=== PATIENT | male | born 1955 | race Caucasian/White ===

== ENCOUNTER 2018-06-14 03:31 | Observation (INO) ==
[2018-06-14] MEDS ORDERED: ONDANSETRON 4 MG/2 ML VIAL IV STA (04:04)
[2018-06-14] MEDS ORDERED: ALUM/MAG/SIMETH/LIDO VISC 1:1 30 ML BOTTLE PO STA (04:04)
[2018-06-14] MEDS ORDERED: ASPIRIN 325 MG TABLET PO STA (04:04)
[2018-06-14] MEDS ORDERED: NITROGLYCERIN 2% OINT 1 INCH/GM PACK TOP STA (04:04)
[2018-06-14] MEDS ORDERED: MORPHINE 4 MG/1 ML VIAL IV STA (04:04)
[2018-06-14] MEDS ORDERED: PANTOPRAZOLE 40 MG VIAL IV STA (04:04)
[2018-06-14 04:13] LABS: Basophils # 0.1 10*3/uL (0.0-0.2); Basophils % 0.4 % (0.0-0.8); Eosinophils # 0.7 10*3/uL (0.0-0.87); Hematocrit 43.1 VOL% (42.0-52.0); Hemoglobin 14.7 GM/DL (14.0-18.0); Immature Granulocytes % 0.7 %; Immature Granulocytes Absolute 0.09 #; Lymphocytes # 1.4 10*3/uL (1.4-4.0); Lymphocytes % 11.7 % (21.2-54.2); Mean Corpuscular HGB Conc 34.1 GM/DL (32-36); Mean Corpuscular Hemoglobin 30 PG (27-34); Mean Corpuscular Volume 86.5 FL (87-102); Mean Platelet Volume 9.4 FL (9.6-12.0); Monocytes # 0.8 10*3/uL (0.11-0.8); Monocytes % 6.3 % (1.7-12.7); Neutrophils # 9.1 10*3/uL (1.4-7.4); Neutrophils % 74.9 % (38.7-73.9); Platelet Count 224 T/CUMM (130-400); Red Blood Count 4.98 MC/CUMM (3.8-5.5); Red Cell Distribution Width 13.4 % (9.3-17.3); White Blood Count 12.1 T/CUMM (4-12)
[2018-06-14 04:19] LABS: PT Patient Result 10.1 SECS
[2018-06-14 04:28] LABS: Albumin 3.7 G/DL (3.4-5.0); Bilirubin,Total 0.4 MG/DL (0.2-1.0); Calcium 8.5 MG/DL (8.5-10.1); Potassium 3.4 MMOL/L (3.5-5.1); Total Protein 7.3 G/DL (6.4-8.3)
[2018-06-14] MEDS ORDERED: POTASSIUM CHLORIDE 20 MEQ TABLET PO STA (04:37)
[2018-06-14] MEDS ORDERED: MAGNESIUM SULF RIDER 2 GM in PREMIX 1 EACH IV STA (04:37)
[2018-06-14 05:15] LABS: Apearance,Urine CLEAR (Clear); Bilirubin,Urine Negative (Negative); Blood, Urine Negative (Negative); Glucose,Urine (UA) 50 mg/dL (Negative); Ketones,Urine Negative (Negative); Nitrite,Urine Negative (Negative); Protein,Urine Negative; RBC,Urine <1 /HPF (0-4); Urine Color Yellow (Yellow); Urine Specific Gravity 1.008 (1.001-1.035); Urine Urobilinogen < 2.0 EU/DL (0.2-1.0); WBC,Urine <1 /HPF (0-6)
[2018-06-14] MEDS ORDERED: ACETAMINOPHEN 325 MG TABLET PO PRN (07:06)
[2018-06-14] MEDS ORDERED: GLUCAGON 1 MG VIAL IM PRN (07:06)
[2018-06-14] MEDS ORDERED: ONDANSETRON 4 MG/2 ML VIAL IV PRN (07:06)
[2018-06-14] MEDS ORDERED: MORPHINE 4 MG/1 ML VIAL IV PRN (07:06)
[2018-06-14] MEDS ORDERED: DEXTROSE 50% 25 GM/50 ML VIAL IV PRN (07:06)
[2018-06-14] MEDS: INSULIN REGULAR 100 UNIT/ML SUBCUT SCH ×3 (08:00→18:32)
[2018-06-14] MEDS: ENOXAPARIN 40 MG/0.4 ML SYRINGE SUBCUT SCH (08:00)
[2018-06-14] MEDS: SODIUM CHLORIDE 0.9% 1,000 ML IV SCH (08:00)
[2018-06-14] MEDS: PANTOPRAZOLE 40 MG VIAL IV SCH (09:39)
[2018-06-14] MEDS: DOCUSATE SODIUM 100 MG CAPSULE PO SCH ×2 (10:14→20:15)
[2018-06-14] MEDS ORDERED: ALBUTEROL 2.5 MG/3 ML NEB RESP TX PRN (14:04)
[2018-06-14] MEDS ORDERED: traMADol 50 MG TABLET PO PRN (14:04)
[2018-06-14] MEDS: PRAVASTATIN 40 MG TABLET PO SCH (20:15)
[2018-06-14] MEDS: SERTRALINE 100 MG TABLET PO SCH (20:15)
[2018-06-14] MEDS: PREGABALIN 100 MG CAPSULE PO SCH (20:15)
[2018-06-14] MEDS ORDERED: cloNIDine 0.1 MG TABLET PO SCH (21:00)
[2018-06-15] MEDS: SODIUM CHLORIDE 0.9% 1,000 ML IV SCH ×2 (00:25→13:54)
[2018-06-15] MEDS: INSULIN REGULAR 100 UNIT/ML SUBCUT SCH ×3 (00:27→12:28)
[2018-06-15 05:57] LABS: Basophils % 0.5 % (0.0-0.8); Eosinophils # 0.8 10*3/uL (0.0-0.87); Eosinophils % 10.6 % (0.00-10.9); Hematocrit 41.8 VOL% (42.0-52.0); Hemoglobin 14.3 GM/DL (14.0-18.0); Immature Granulocytes % 0.5 %; Immature Granulocytes Absolute 0.04 #; Lymphocytes # 1.2 10*3/uL (1.4-4.0); Lymphocytes % 15.4 % (21.2-54.2); Mean Corpuscular HGB Conc 34.2 GM/DL (32-36); Mean Corpuscular Hemoglobin 30 PG (27-34); Mean Corpuscular Volume 86.5 FL (87-102); Mean Platelet Volume 9.8 FL (9.6-12.0); Monocytes # 0.6 10*3/uL (0.11-0.8); Monocytes % 7.9 % (1.7-12.7); Neutrophils # 5.1 10*3/uL (1.4-7.4); Neutrophils % 65.1 % (38.7-73.9); Platelet Count 184 T/CUMM (130-400); Red Blood Count 4.83 MC/CUMM (3.8-5.5); Red Cell Distribution Width 13.6 % (9.3-17.3); White Blood Count 7.8 T/CUMM (4-12)
[2018-06-15 06:24] LABS: Albumin 3.1 G/DL (3.4-5.0); Bilirubin,Total 0.7 MG/DL (0.2-1.0); Calcium 8.1 MG/DL (8.5-10.1); Osmolality,Calculated 280.3 MOS/KG (273-304); Potassium 3.8 MMOL/L (3.5-5.1); Total Protein 6.3 G/DL (6.4-8.3)
[2018-06-15 06:25] LABS: Risk Ratio 4.52
[2018-06-15] MEDS: ENOXAPARIN 40 MG/0.4 ML SYRINGE SUBCUT SCH (06:30)
[2018-06-15 06:39] LABS: Eosinophils 10 % (0-10); Hypochromasia 1+; Lymphocytes 17 % (20-55); Platelet Estimate Adequate; Segmented Neutrophils 67 % (50-85); Total Cells Counted 100
[2018-06-15] MEDS: SERTRALINE 100 MG TABLET PO SCH (08:25)
[2018-06-15] MEDS: DOCUSATE SODIUM 100 MG CAPSULE PO SCH (08:26)
[2018-06-15] MEDS: PRAVASTATIN 40 MG TABLET PO SCH (08:26)
[2018-06-15] MEDS: PANTOPRAZOLE 40 MG VIAL IV SCH (08:27)
[2018-06-15] MEDS: PREGABALIN 100 MG CAPSULE PO SCH (08:27)
[2018-06-15] MEDS ORDERED: hydroCHLOROthiazide 25 MG TABLET PO SCH (09:00)
[2018-06-15] MEDS ORDERED: DILTIAZEM CD 180 MG CAPSULE PO SCH (09:00)
[2018-06-15] MEDS ORDERED: ARIPiprazole 5 MG TABLET PO SCH (09:00)
[2018-06-15] MEDS ORDERED: MONTELUKAST 10 MG TABLET PO SCH (09:00)
[2018-06-15] MEDS ORDERED: METHOCARBAMOL 750 MG TABLET PO PRN (13:06)
[2018-06-15 13:09] VITALS: BP 116/74
[2018-06-15] MEDS ORDERED: glyBURIDE/METFORMIN 5-500 MG TABLET PO SCH (21:00)
[2018-06-15] MEDS ORDERED: PANTOPRAZOLE 40 MG TABLET PO SCH (21:00)
== END 2018-06-15 13:57 | disposition home or self-care (01) ==
LOC: N.ED 03:31 → INTOOBSV 04:55 → N.EDINP 04:55 → N.TELEN 13:55
PROVIDERS: ADMIT Family Medicine; ATTEND Family Medicine

== ENCOUNTER 2022-01-29 20:48 | Inpatient (IN) ==
[2022-01-29] MEDS ORDERED: ONDANSETRON 4 MG/2 ML VIAL IV STA (21:15)
[2022-01-29] MEDS ORDERED: HYDROmorphone 1 MG/1 ML SYRINGE IV STA (21:15)
[2022-01-29 21:35] LABS: Basophils % 0.3 % (0.0-0.8); Eosinophils % 0.1 % (0.00-10.9); Hematocrit 52.4 VOL% (42.0-52.0); Hemoglobin 17.8 GM/DL (14.0-18.0); Immature Granulocytes Absolute 0.07 #; Lymphocytes # 0.1 10*3/uL (1.4-4.0); Lymphocytes % 1.9 % (21.2-54.2); Mean Corpuscular Volume 84.5 FL (87-102); Mean Platelet Volume 9.6 FL (9.6-12.0); Monocytes % 0.4 % (1.7-12.7); Neutrophils % 96.3 % (38.7-73.9); Platelet Count 186 T/CUMM (130-400); Red Cell Distribution Width 14.2 % (9.3-17.3); White Blood Count 6.7 T/CUMM (4-12)
[2022-01-29 21:44] LABS: INR 1.1; PT Patient Result 12.4 SECS (10.5-12.0); Partial Thromboplastin Time 22.2 SECS (23.8-32.1)
[2022-01-29] MEDS ORDERED: ALBUTEROL 2.5 MG/3 ML NEB RESP TX STA (21:50)
[2022-01-29 21:53] LABS: Bilirubin,Total 0.7 MG/DL (0.20-1.00); Calcium 8.4 MG/DL (8.5-10.1); Osmolality,Calculated 282.8 MOS/KG (273-304); Potassium 3.4 MMOL/L (3.5-5.1); Total Protein 6.5 G/DL (6.4-8.2)
[2022-01-29 21:55] LABS: Lymphocytes 4 % (20-55); Total Cells Counted 100
[2022-01-29 21:56] LABS: Platelet Estimate Normal
[2022-01-29] MEDS ORDERED: FAMOTIDINE 20 MG/2 ML VIAL IV STA (22:11)
[2022-01-29] MEDS ORDERED: diphenhydrAMINE 50 MG/1 ML VIAL IV STA (22:11)
[2022-01-29] MEDS ORDERED: methylPREDNISolone SOD SUC 125 MG/2 ML VIAL IV STA (22:11)
[2022-01-29] MEDS ORDERED: SODIUM CHLORIDE 0.9% 2,000 ML IV STA (23:05)
[2022-01-29] MEDS ORDERED: HEPARIN 5,000 UNIT/1 ML VIAL IV ONE ×2 (23:30→23:40)
[2022-01-29] MEDS ORDERED: ALBUTEROL 2.5 MG/3 ML NEB RESP TX PRN (23:55)
[2022-01-29] MEDS ORDERED: GLUCAGON 1 MG VIAL IM PRN (23:56)
[2022-01-29] MEDS ORDERED: ONDANSETRON 4 MG/2 ML VIAL IV PRN (23:56)
[2022-01-30] MEDS ORDERED: HEPARIN DRIP 25,000 UNITS/500 ML PREMIX IV SCH
[2022-01-30] MEDS ORDERED: POTASSIUM CHLORIDE 20 MEQ TABLET PO PRN ×2 (00:01→00:27)
[2022-01-30] MEDS ORDERED: fentaNYL 100 MCG/2 ML VIAL IV STA (00:04)
[2022-01-30] MEDS ORDERED: DEXTROSE 10% 250 ML BAG IV PRN (00:05)
[2022-01-30] MEDS ORDERED: MAGNESIUM SULF RIDER 4 GM/100 ML PREMIX IV ONE (00:30)
[2022-01-30 04:36] LABS: Arterial Base Excess iSTAT -5 MMOL/L (-2.5-2.5); Arterial Bicarbonate iSTAT 20.5 MMOL/L (20-26); Arterial O2 Saturation iSTAT 97 % (95-100); Arterial PCO2 iSTAT 39 MM HG (35-48); Arterial PO2 iSTAT 101 MM HG (80-95); Arterial Total CO2 iSTAT 22 MMO/L (23-27); Arterial pH iSTAT 7.331 (7.35-7.45)
[2022-01-30] MEDS ORDERED: methylPREDNISolone SOD SUC 40 MG/1 ML VIAL IV SCH (06:00)
[2022-01-30] MEDS ORDERED: DEXTROSE 50% 25 GM/50 ML VIAL IV PRN (07:09)
[2022-01-30] MEDS ORDERED: GLUCAGON 1 MG VIAL IM PRN (07:09)
[2022-01-30 08:25] LABS: Calcium 8.6 MG/DL (8.5-10.1); Potassium 4.6 MMOL/L (3.5-5.1)
[2022-01-30] MEDS: INSULIN LISPRO 100 UNIT/ML SUBCUT SCH ×5 (08:30→22:59)
[2022-01-30] MEDS: PREGABALIN 100 MG CAPSULE PO SCH ×2 (08:31→21:29)
[2022-01-30] MEDS: ARIPiprazole 5 MG TABLET PO SCH (08:31)
[2022-01-30] MEDS: MONTELUKAST 10 MG TABLET PO SCH (08:31)
[2022-01-30] MEDS: SERTRALINE 100 MG TABLET PO SCH ×2 (08:31→21:30)
[2022-01-30] MEDS: DILTIAZEM CD 180 MG CAPSULE PO SCH (08:32)
[2022-01-30] MEDS ORDERED: KETOROLAC 10 MG TABLET PO ONE (08:45)
[2022-01-30] MEDS ORDERED: APIXABAN 5 MG TABLET PO SCH (09:00)
[2022-01-30] MEDS ORDERED: LACTATED RINGERS 1,000 ML IV ONE ×2 (11:43→15:13)
[2022-01-30 12:13] LABS: Basophils % 0.1 % (0.0-0.8); Eosinophils % 0.1 % (0.00-10.9); Immature Granulocytes Absolute 0.17 #; Lymphocytes # 0.6 10*3/uL (1.4-4.0); Lymphocytes % 3.2 % (21.2-54.2); Mean Corpuscular HGB Conc 32.4 GM/DL (32-36); Mean Corpuscular Volume 87.8 FL (87-102); Mean Platelet Volume 10.3 FL (9.6-12.0); Monocytes # 0.4 10*3/uL (0.11-0.8); Neutrophils % 93.6 % (38.7-73.9); Platelet Count 212 T/CUMM (130-400); Red Cell Distribution Width 14.4 % (9.3-17.3)
[2022-01-30 12:14] LABS: Hemoglobin 12.3 GM/DL (14.0-18.0); Red Blood Count 4.33 MC/CUMM (3.8-5.5); White Blood Count 17.6 T/CUMM (4-12)
[2022-01-30 12:21] LABS: Anisocytosis 1+; Band Neutrophils 13 % (0-10); Lymphocytes 7 % (20-55); Macrocytosis Slight; Platelet Estimate Normal; Total Cells Counted 100
[2022-01-30 12:22] LABS: Burr Cells Few
[2022-01-30 12:30] LABS: Albumin 2.4 G/DL (3.4-5.0); Bilirubin,Total 0.4 MG/DL (0.20-1.00); Calcium 8.5 MG/DL (8.5-10.1); Osmolality,Calculated 286.4 MOS/KG (273-304); Potassium 4.6 MMOL/L (3.5-5.1); Total Protein 6.6 G/DL (6.4-8.2)
[2022-01-30] MEDS: PIPERACILLIN/TAZOBACTAM 3,375 MG in SODIUM CHLORIDE 0.9% 100 ML IV SCH ×2 (13:08→21:30)
[2022-01-30] MEDS: LACTATED RINGERS 1,000 ML IV SCH ×2 (13:09→21:28)
[2022-01-30] MEDS: INSULIN GLARGINE 100 UNIT/ML SUBCUT SCH (14:06)
[2022-01-30 16:20] LABS: RBC,Urine 6 /HPF (0-4)
[2022-01-30 16:23] LABS: Bilirubin,Urine Negative (Negative); Glucose,Urine (UA) 500 mg/dL (Negative); Ketones,Urine Negative (Negative); Nitrite,Urine Negative (Negative); Protein,Urine 30 mg/dL (Negative); Urine Appearance Clear (Clear); Urine Color Yellow (Yellow); Urine Specific Gravity 1.025 (1.001-1.035); Urine pH 6.5 (4.5-8.0)
[2022-01-30 16:24] LABS: Blood, Urine Trace mg/dL (Negative)
[2022-01-30] MEDS ORDERED: ALBUTEROL/IPRATROPIUM 3 ML NEB RESP TX PRN (16:31)
[2022-01-30] MEDS: HEPARIN DRIP 25,000 UNITS/500 ML PREMIX IV SCH (16:48)
[2022-01-30 17:15] LABS: INR 1.1
[2022-01-30] MEDS: ALBUTEROL/IPRATROPIUM 3 ML NEB RESP TX SCH ×2 (19:30→23:15)
[2022-01-30] MEDS ORDERED: cloNIDine 0.1 MG TABLET PO SCH (21:00)
[2022-01-30] MEDS: methylPREDNISolone SOD SUC 40 MG/1 ML VIAL IV SCH (21:29)
[2022-01-30] MEDS: SIMVASTATIN 40 MG TABLET PO SCH (21:30)
[2022-01-31] MEDS: INSULIN LISPRO 100 UNIT/ML SUBCUT SCH ×6 (02:02→23:36)
[2022-01-31] MEDS: ALBUTEROL/IPRATROPIUM 3 ML NEB RESP TX SCH ×6 (03:55→23:38)
[2022-01-31] MEDS: LACTATED RINGERS 1,000 ML IV SCH ×5 (04:00→20:12)
[2022-01-31 04:11] LABS: ABG HCO3 24.4 MMOL/L (20-26); ABG Oxygen Saturation 94.9 % (95-100); ABG PCO2 39.7 MM HG (35-48); ABG PH 7.401 (7.35-7.45); ABG PO2 74.8 MM HG (80-95); ABG TCO2 21.9 MMOL/L (23-27)
[2022-01-31] MEDS: PIPERACILLIN/TAZOBACTAM 3,375 MG in SODIUM CHLORIDE 0.9% 100 ML IV SCH ×3 (05:30→20:02)
[2022-01-31 07:05] LABS: Basophils % 0.1 % (0.0-0.8); Hematocrit 36.7 VOL% (42.0-52.0); Immature Granulocytes % 1.2 %; Lymphocytes # 0.7 10*3/uL (1.4-4.0); Mean Corpuscular HGB Conc 32.7 GM/DL (32-36); Mean Corpuscular Volume 87.8 FL (87-102); Mean Platelet Volume 10.6 FL (9.6-12.0); Monocytes # 0.6 10*3/uL (0.11-0.8); Monocytes % 3.6 % (1.7-12.7); Neutrophils % 91.1 % (38.7-73.9); Platelet Count 212 T/CUMM (130-400); Red Blood Count 4.18 MC/CUMM (3.8-5.5); Red Cell Distribution Width 14.5 % (9.3-17.3); White Blood Count 16.6 T/CUMM (4-12)
[2022-01-31 07:22] LABS: Anisocytosis 1+; Band Neutrophils 8 % (0-10); Burr Cells 1+; Lymphocytes 6 % (20-55); Platelet Estimate Normal; Total Cells Counted 100
[2022-01-31 07:30] LABS: Calcium 8.5 MG/DL (8.5-10.1); Osmolality,Calculated 284.2 MOS/KG (273-304); Phosphorous 2.3 MG/DL (2.5-4.9); Potassium 4.1 MMOL/L (3.5-5.1)
[2022-01-31 07:42] LABS: Calcium 8.3 MG/DL (8.5-10.1); Potassium 4.2 MMOL/L (3.5-5.1)
[2022-01-31] MEDS: ARIPiprazole 5 MG TABLET PO SCH (09:45)
[2022-01-31] MEDS: PREGABALIN 100 MG CAPSULE PO SCH ×2 (09:46→20:01)
[2022-01-31] MEDS: MONTELUKAST 10 MG TABLET PO SCH (09:46)
[2022-01-31] MEDS: SERTRALINE 100 MG TABLET PO SCH ×2 (09:47→20:00)
[2022-01-31] MEDS: DILTIAZEM CD 180 MG CAPSULE PO SCH (09:47)
[2022-01-31] MEDS: INSULIN GLARGINE 100 UNIT/ML SUBCUT SCH (09:49)
[2022-01-31] MEDS: methylPREDNISolone SOD SUC 40 MG/1 ML VIAL IV SCH ×2 (09:50→20:00)
[2022-01-31] MEDS: PANTOPRAZOLE 40 MG VIAL IV SCH (09:50)
[2022-01-31] MEDS ORDERED: INSULIN GLARGINE 100 UNIT/ML SUBCUT SCH (11:25)
[2022-01-31] MEDS: HEPARIN DRIP 25,000 UNITS/500 ML PREMIX IV SCH (15:08)
[2022-01-31] MEDS: SIMVASTATIN 40 MG TABLET PO SCH (20:02)
[2022-02-01] MEDS: HEPARIN DRIP 25,000 UNITS/500 ML PREMIX IV SCH ×3 (01:38→17:25)
[2022-02-01] MEDS: ALBUTEROL/IPRATROPIUM 3 ML NEB RESP TX SCH ×6 (03:22→22:55)
[2022-02-01] MEDS: PIPERACILLIN/TAZOBACTAM 3,375 MG in SODIUM CHLORIDE 0.9% 100 ML IV SCH ×2 (04:09→13:33)
[2022-02-01] MEDS: INSULIN LISPRO 100 UNIT/ML SUBCUT SCH ×6 (04:10→23:53)
[2022-02-01] MEDS: LACTATED RINGERS 1,000 ML IV SCH ×2 (05:32→15:49)
[2022-02-01 05:33] LABS: Basophils % 0.1 % (0.0-0.8); Hemoglobin 11.6 GM/DL (14.0-18.0); Immature Granulocytes % 1.7 %; Immature Granulocytes Absolute 0.27 #; Lymphocytes # 0.6 10*3/uL (1.4-4.0); Mean Corpuscular HGB Conc 32.2 GM/DL (32-36); Mean Corpuscular Volume 88.5 FL (87-102); Monocytes # 0.7 10*3/uL (0.11-0.8); Monocytes % 4.3 % (1.7-12.7); NRBC # 0.02 10*3/uL; Neutrophils % 89.9 % (38.7-73.9); Platelet Count 227 T/CUMM (130-400); Red Blood Count 4.07 MC/CUMM (3.8-5.5); Red Cell Distribution Width 14.6 % (9.3-17.3); White Blood Count 15.9 T/CUMM (4-12)
[2022-02-01 05:52] LABS: Alanine Aminotransferase 28 U/L (16-61); Albumin 2.2 G/DL (3.4-5.0); Alkaline Phosphatase 78 U/L (45-117); Aspartate Amino Transferase 19 U/L (0-37); Bilirubin,Total < 0.39 MG/DL (0.20-1.00); Blood Urea Nitrogen 20 MG/DL (7-18); Calcium 8.4 MG/DL (8.5-10.1); Carbon Dioxide 25 MMOL/L (21-32); Chloride 106 MMOL/L (98-107); Estimated Glom Filtration Rate 131 ML/MIN; Glucose 339 MG/DL (74-106); Osmolality,Calculated 288.8 MOS/KG (273-304); Sodium 137 MMOL/L (136-145)
[2022-02-01 06:00] LABS: Lymphocytes 2 % (20-55); Platelet Estimate Adequate; Total Cells Counted 100
[2022-02-01] MEDS ORDERED: INSULIN GLARGINE 100 UNIT/ML SUBCUT SCH (09:00)
[2022-02-01] MEDS: methylPREDNISolone SOD SUC 40 MG/1 ML VIAL IV SCH ×2 (10:05→20:46)
[2022-02-01] MEDS: SERTRALINE 100 MG TABLET PO SCH ×2 (10:06→20:46)
[2022-02-01] MEDS: DILTIAZEM CD 180 MG CAPSULE PO SCH (10:06)
[2022-02-01] MEDS: PANTOPRAZOLE 40 MG VIAL IV SCH (10:06)
[2022-02-01] MEDS: MONTELUKAST 10 MG TABLET PO SCH (10:06)
[2022-02-01] MEDS: ARIPiprazole 5 MG TABLET PO SCH (10:07)
[2022-02-01] MEDS: PREGABALIN 100 MG CAPSULE PO SCH ×2 (10:07→20:46)
[2022-02-01] MEDS ORDERED: ERTAPENEM 1,000 MG in SODIUM CHLORIDE 0.9% 100 ML IV SCH (18:00)
[2022-02-01] MEDS: SIMVASTATIN 40 MG TABLET PO SCH (20:46)
[2022-02-01] MEDS: APIXABAN 5 MG TABLET PO SCH (20:46)
[2022-02-02] MEDS: LACTATED RINGERS 1,000 ML IV SCH ×2 (01:00→02:25)
[2022-02-02] MEDS: ALBUTEROL/IPRATROPIUM 3 ML NEB RESP TX SCH ×3 (02:51→11:29)
[2022-02-02] MEDS: INSULIN LISPRO 100 UNIT/ML SUBCUT SCH ×3 (04:15→14:00)
[2022-02-02 04:31] LABS: Basophils % 0.2 % (0.0-0.8); Hematocrit 38.2 VOL% (42.0-52.0); Hemoglobin 12.3 GM/DL (14.0-18.0); Immature Granulocytes % 5.4 %; Immature Granulocytes Absolute 0.77 #; Lymphocytes # 0.6 10*3/uL (1.4-4.0); Lymphocytes % 4.2 % (21.2-54.2); Mean Corpuscular HGB Conc 32.2 GM/DL (32-36); Mean Corpuscular Volume 88.6 FL (87-102); Mean Platelet Volume 10.7 FL (9.6-12.0); Monocytes # 0.8 10*3/uL (0.11-0.8); Monocytes % 5.4 % (1.7-12.7); Neutrophils % 84.8 % (38.7-73.9); Platelet Count 244 T/CUMM (130-400); Red Blood Count 4.31 MC/CUMM (3.8-5.5); Red Cell Distribution Width 14.6 % (9.3-17.3); White Blood Count 14.2 T/CUMM (4-12)
[2022-02-02 04:49] LABS: Band Neutrophils 1 % (0-10); Lymphocytes 5 % (20-55); Platelet Estimate Adequate; Total Cells Counted 100
[2022-02-02 05:17] LABS: Calcium 8.3 MG/DL (8.5-10.1); Osmolality,Calculated 291.5 MOS/KG (273-304); Potassium 4.2 MMOL/L (3.5-5.1)
[2022-02-02] MEDS ORDERED: PANTOPRAZOLE 40 MG TABLET PO SCH (09:00)
[2022-02-02] MEDS ORDERED: glyBURIDE/METFORMIN 5-500 MG TABLET PO SCH (09:00)
[2022-02-02] MEDS ORDERED: INSULIN GLARGINE 100 UNIT/ML SUBCUT SCH (09:00)
[2022-02-02] MEDS ORDERED: glipiZIDE 5 MG TABLET PO SCH (09:00)
[2022-02-02] MEDS ORDERED: metFORMIN 500 MG TABLET PO SCH (09:00)
[2022-02-02] MEDS: ARIPiprazole 5 MG TABLET PO SCH (10:32)
[2022-02-02] MEDS: DILTIAZEM CD 180 MG CAPSULE PO SCH (10:32)
[2022-02-02] MEDS: PREGABALIN 100 MG CAPSULE PO SCH (10:32)
[2022-02-02] MEDS: APIXABAN 5 MG TABLET PO SCH (10:33)
[2022-02-02] MEDS: MONTELUKAST 10 MG TABLET PO SCH (10:33)
[2022-02-02] MEDS: SERTRALINE 100 MG TABLET PO SCH (10:33)
[2022-02-02] MEDS: methylPREDNISolone SOD SUC 40 MG/1 ML VIAL IV SCH (10:36)
[2022-02-02 15:10] VITALS: BP 155/71
[2022-02-09] MEDS ORDERED: APIXABAN 5 MG TABLET PO SCH (09:00)
== END 2022-02-02 14:30 | disposition home health service (06) | DRG 176 ==
LOC: N.ED 20:48 → SUATTDRO 23:55 → N.EDINP 23:55 → N.CC 01-30 02:15
PROVIDERS: ADMIT Internal Medicine; ATTEND Internal Medicine

== ENCOUNTER 2022-03-23 03:25 | Inpatient (IN) ==
[2022-03-23] MEDS ORDERED: FUROSEMIDE 40 MG/4 ML VIAL IV STA (03:50)
[2022-03-23] MEDS ORDERED: SODIUM CHLORIDE 0.9% 500 ML IV STA (03:50)
[2022-03-23] MEDS ORDERED: ONDANSETRON 4 MG/2 ML VIAL IV STA (03:50)
[2022-03-23] MEDS ORDERED: MORPHINE 2 MG/1 ML SYRINGE IV STA (03:50)
[2022-03-23] MEDS ORDERED: ALBUTEROL/IPRATROPIUM 3 ML NEB RESP TX STA (03:50)
[2022-03-23 04:00] LABS: Basophils % 0.3 % (0.0-0.8); Eosinophils # 0.3 10*3/uL (0.0-0.87); Eosinophils % 2.6 % (0.00-10.9); Hematocrit 39.9 VOL% (42.0-52.0); Hemoglobin 13.1 GM/DL (14.0-18.0); Immature Granulocytes % 1.3 %; Immature Granulocytes Absolute 0.17 #; Lymphocytes # 0.5 10*3/uL (1.4-4.0); Lymphocytes % 4.2 % (21.2-54.2); Mean Corpuscular HGB Conc 32.8 GM/DL (32-36); Mean Corpuscular Volume 86.4 FL (87-102); Mean Platelet Volume 9.7 FL (9.6-12.0); Monocytes # 0.3 10*3/uL (0.11-0.8); Monocytes % 2.4 % (1.7-12.7); Neutrophils % 89.2 % (38.7-73.9); Platelet Count 156 T/CUMM (130-400); Red Blood Count 4.62 MC/CUMM (3.8-5.5); Red Cell Distribution Width 15.4 % (9.3-17.3); White Blood Count 12.7 T/CUMM (4-12)
[2022-03-23 04:05] LABS: Bacteria,Urine Occasional /HPF (Few); Mucus,Urine Occasional /LPF (Occasional); RBC,Urine 8 /HPF (0-4); Squamous Epithelial Cell,Urine Occasional /HPF (0-10)
[2022-03-23 04:06] LABS: Bilirubin,Urine Negative (Negative); Blood, Urine Trace mg/dL (Negative); Glucose,Urine (UA) Negative (Negative); INR 1.2; Ketones,Urine Trace mg/dL (Negative); Nitrite,Urine Negative (Negative); PT Patient Result 13.1 SECS (10.5-12.0); Protein,Urine 30 mg/dL (Negative); Urine Appearance Clear (Clear); Urine Color Yellow (Yellow)
[2022-03-23 04:12] LABS: Bilirubin,Total 1.3 MG/DL (0.20-1.00); Calcium 8.3 MG/DL (8.5-10.1); Osmolality,Calculated 276.7 MOS/KG (273-304); Potassium 3.5 MMOL/L (3.5-5.1)
[2022-03-23 04:19] LABS: Band Neutrophils 2 % (0-10); Eosinophils 4 % (0-10); Lymphocytes 4 % (20-55); Platelet Estimate Adequate; Total Cells Counted 100
[2022-03-23 04:20] LABS: Hypochromia Slight; Microcytosis Slight
[2022-03-23] MEDS ORDERED: MAGNESIUM SULF RIDER 2 GM/50 ML PREMIX IV STA (04:33)
[2022-03-23] MEDS ORDERED: PIPERACILLIN/TAZOBACTAM 3,375 MG in SODIUM CHLORIDE 0.9% 100 ML IV STA (04:48)
[2022-03-23] MEDS ORDERED: ALBUTEROL/IPRATROPIUM 3 ML NEB RESP TX PRN (07:10)
[2022-03-23] MEDS ORDERED: DEXTROSE 10% 250 ML BAG IV PRN (07:10)
[2022-03-23] MEDS ORDERED: ALBUTEROL 2.5 MG/3 ML NEB RESP TX PRN (07:10)
[2022-03-23] MEDS ORDERED: ONDANSETRON 4 MG/2 ML VIAL IV PRN (07:10)
[2022-03-23] MEDS ORDERED: ACETAMINOPHEN 325 MG TABLET PO PRN (07:10)
[2022-03-23] MEDS ORDERED: GLUCAGON 1 MG VIAL IM PRN (07:10)
[2022-03-23] MEDS ORDERED: SIMVASTATIN 40 MG TABLET PO SCH (09:00)
[2022-03-23] MEDS: PANTOPRAZOLE 40 MG VIAL IV SCH (10:05)
[2022-03-23] MEDS: methylPREDNISolone SOD SUC 40 MG/1 ML VIAL IV SCH ×2 (10:06→17:08)
[2022-03-23] MEDS: PIPERACILLIN/TAZOBACTAM 3,375 MG in SODIUM CHLORIDE 0.9% 100 ML IV SCH ×2 (10:06→17:03)
[2022-03-23] MEDS: PANTOPRAZOLE 40 MG TABLET PO SCH (10:07)
[2022-03-23] MEDS: APIXABAN 5 MG TABLET PO SCH ×2 (10:07→22:02)
[2022-03-23] MEDS: PREGABALIN 100 MG CAPSULE PO SCH ×2 (10:07→22:02)
[2022-03-23] MEDS: ARIPiprazole 5 MG TABLET PO SCH (10:35)
[2022-03-23] MEDS: PIOGLITAZONE 15 MG TABLET PO SCH (10:35)
[2022-03-23] MEDS: DILTIAZEM CD 180 MG CAPSULE PO SCH (10:35)
[2022-03-23] MEDS: glyBURIDE/METFORMIN 5-500 MG TABLET PO SCH ×2 (10:35→22:03)
[2022-03-23] MEDS: ALBUTEROL/IPRATROPIUM 3 ML NEB RESP TX SCH ×4 (10:55→23:51)
[2022-03-23] MEDS: HYDROmorphone 1 MG/1 ML SYRINGE IV PRN ×2 (17:01→22:03)
[2022-03-23] MEDS: SERTRALINE 100 MG TABLET PO SCH (22:01)
[2022-03-23] MEDS: MONTELUKAST 10 MG TABLET PO SCH (22:02)
[2022-03-23] MEDS: cloNIDine 0.1 MG TABLET PO SCH (22:03)
[2022-03-23] MEDS: MAGNESIUM SULF IV SCH (23:05)
[2022-03-23] MEDS: POTASSIUM CHLORIDE IV SCH (23:05)
[2022-03-23] MEDS: [UNRECOGNIZED DRUG - OTHER] IV SCH (23:05)
[2022-03-24] MEDS: PIPERACILLIN/TAZOBACTAM 3,375 MG in SODIUM CHLORIDE 0.9% 100 ML IV SCH ×4 (00:54→23:08)
[2022-03-24] MEDS: methylPREDNISolone SOD SUC 40 MG/1 ML VIAL IV SCH ×3 (00:55→17:19)
[2022-03-24] MEDS: ALBUTEROL/IPRATROPIUM 3 ML NEB RESP TX SCH ×6 (03:36→23:37)
[2022-03-24] MEDS: cloNIDine 0.1 MG TABLET PO SCH ×2 (03:59→21:32)
[2022-03-24 04:33] LABS: Basophils % 0.2 % (0.0-0.8); Hematocrit 41.2 VOL% (42.0-52.0); Hemoglobin 13.5 GM/DL (14.0-18.0); Immature Granulocytes % 1.4 %; Immature Granulocytes Absolute 0.06 #; Lymphocytes # 0.3 10*3/uL (1.4-4.0); Lymphocytes % 5.9 % (21.2-54.2); Mean Corpuscular HGB Conc 32.8 GM/DL (32-36); Mean Corpuscular Volume 86.2 FL (87-102); Mean Platelet Volume 10.5 FL (9.6-12.0); Monocytes # 0.1 10*3/uL (0.11-0.8); Monocytes % 3.2 % (1.7-12.7); Neutrophils % 89.3 % (38.7-73.9); Platelet Count 183 T/CUMM (130-400); Red Blood Count 4.78 MC/CUMM (3.8-5.5); Red Cell Distribution Width 15.4 % (9.3-17.3); White Blood Count 4.4 T/CUMM (4-12)
[2022-03-24] MEDS: HYDROmorphone 1 MG/1 ML SYRINGE IV PRN (04:50)
[2022-03-24 04:53] LABS: Albumin 2.8 G/DL (3.4-5.0); Bilirubin,Total 0.9 MG/DL (0.20-1.00); Calcium 8.7 MG/DL (8.5-10.1); Potassium 3.4 MMOL/L (3.5-5.1); Total Protein 6.9 G/DL (6.4-8.2)
[2022-03-24 05:00] LABS: Band Neutrophils 4 % (0-10); Lymphocytes 6 % (20-55); Platelet Estimate Adequate; Total Cells Counted 100
[2022-03-24] MEDS: POTASSIUM CHLORIDE IV SCH ×2 (07:05→23:12)
[2022-03-24] MEDS: [UNRECOGNIZED DRUG - OTHER] IV SCH ×2 (07:05→23:12)
[2022-03-24] MEDS: MAGNESIUM SULF IV SCH ×2 (07:05→23:12)
[2022-03-24] MEDS ORDERED: INSULIN LISPRO 100 UNIT/ML SUBCUT SCH (07:30)
[2022-03-24] MEDS ORDERED: ENOXAPARIN 120 MG/0.8 ML SYRINGE SUBCUT SCH (08:00)
[2022-03-24] MEDS ORDERED: MAGNESIUM SULF RIDER 2 GM/50 ML PREMIX IV ONE (08:00)
[2022-03-24] MEDS: PIOGLITAZONE 15 MG TABLET PO SCH (08:54)
[2022-03-24] MEDS: ARIPiprazole 5 MG TABLET PO SCH (08:54)
[2022-03-24] MEDS: DILTIAZEM CD 180 MG CAPSULE PO SCH (08:55)
[2022-03-24] MEDS: PREGABALIN 100 MG CAPSULE PO SCH ×2 (08:55→21:39)
[2022-03-24] MEDS: PANTOPRAZOLE 40 MG TABLET PO SCH (08:55)
[2022-03-24] MEDS: glyBURIDE/METFORMIN 5-500 MG TABLET PO SCH ×2 (08:55→21:38)
[2022-03-24] MEDS: PANTOPRAZOLE 40 MG VIAL IV SCH (08:57)
[2022-03-24] MEDS: POTASSIUM CHLORIDE RIDER 10 MEQ/100 ML PREMIX IV SCH ×2 (10:42→11:55)
[2022-03-24] MEDS ORDERED: HYDROmorphone 1 MG/1 ML SYRINGE IV PRN (11:22)
[2022-03-24] MEDS ORDERED: ONDANSETRON 4 MG/2 ML VIAL IV PRN (11:23)
[2022-03-24] MEDS: INSULIN LISPRO 100 UNIT/ML SUBCUT SCH ×3 (11:46→21:41)
[2022-03-24] MEDS: HEPARIN DRIP 25,000 UNITS/500 ML PREMIX IV SCH (17:22)
[2022-03-24] MEDS: SERTRALINE 100 MG TABLET PO SCH (21:39)
[2022-03-24] MEDS: MONTELUKAST 10 MG TABLET PO SCH (21:39)
[2022-03-24] MEDS: SIMVASTATIN 40 MG TABLET PO SCH (21:40)
[2022-03-25] MEDS: methylPREDNISolone SOD SUC 40 MG/1 ML VIAL IV SCH ×3 (00:23→16:24)
[2022-03-25 03:24] LABS: Basophils % 0.1 % (0.0-0.8); Eosinophils % 0.1 % (0.00-10.9); Hemoglobin 11.6 GM/DL (14.0-18.0); Immature Granulocytes % 1.4 %; Immature Granulocytes Absolute 0.21 #; Lymphocytes # 0.6 10*3/uL (1.4-4.0); Lymphocytes % 4.2 % (21.2-54.2); Mean Corpuscular HGB Conc 32.2 GM/DL (32-36); Monocytes # 0.7 10*3/uL (0.11-0.8); Monocytes % 4.8 % (1.7-12.7); Neutrophils % 89.4 % (38.7-73.9); Platelet Count 157 T/CUMM (130-400); Red Blood Count 4.09 MC/CUMM (3.8-5.5); Red Cell Distribution Width 15.2 % (9.3-17.3); White Blood Count 15.3 T/CUMM (4-12)
[2022-03-25 03:46] LABS: Band Neutrophils 7 % (0-10); Eosinophils 1 % (0-10); Lymphocytes 1 % (20-55); Metamyelocytes 1 %; Microcytosis Slight; Platelet Estimate Adequate; Total Cells Counted 100
[2022-03-25] MEDS: ALBUTEROL/IPRATROPIUM 3 ML NEB RESP TX SCH ×6 (04:00→23:40)
[2022-03-25] MEDS: HEPARIN DRIP 25,000 UNITS/500 ML PREMIX IV SCH ×2 (04:48→16:24)
[2022-03-25] MEDS: INSULIN LISPRO 100 UNIT/ML SUBCUT SCH ×4 (07:45→20:54)
[2022-03-25] MEDS: MAGNESIUM SULF IV SCH ×2 (07:48→09:43)
[2022-03-25] MEDS: [UNRECOGNIZED DRUG - OTHER] IV SCH ×2 (07:48→09:43)
[2022-03-25] MEDS: POTASSIUM CHLORIDE IV SCH ×2 (07:48→09:43)
[2022-03-25] MEDS: HYDROmorphone 1 MG/1 ML SYRINGE IV PRN ×2 (07:50→20:56)
[2022-03-25 08:04] LABS: Calcium 8.5 MG/DL (8.5-10.1); Osmolality,Calculated 286.1 MOS/KG (273-304); Potassium 3.9 MMOL/L (3.5-5.1)
[2022-03-25] MEDS: PREGABALIN 100 MG CAPSULE PO SCH ×2 (08:46→20:54)
[2022-03-25] MEDS: PIPERACILLIN/TAZOBACTAM 3,375 MG in SODIUM CHLORIDE 0.9% 100 ML IV SCH ×2 (08:46→14:33)
[2022-03-25] MEDS: DILTIAZEM CD 180 MG CAPSULE PO SCH ×2 (08:47→09:41)
[2022-03-25] MEDS: PANTOPRAZOLE 40 MG TABLET PO SCH (08:47)
[2022-03-25] MEDS: ARIPiprazole 5 MG TABLET PO SCH (08:47)
[2022-03-25] MEDS: PIOGLITAZONE 15 MG TABLET PO SCH (08:47)
[2022-03-25] MEDS: glyBURIDE/METFORMIN 5-500 MG TABLET PO SCH ×2 (08:47→20:54)
[2022-03-25] MEDS: PANTOPRAZOLE 40 MG VIAL IV SCH ×2 (08:47→09:44)
[2022-03-25] MEDS: MONTELUKAST 10 MG TABLET PO SCH (18:02)
[2022-03-25] MEDS: SERTRALINE 100 MG TABLET PO SCH (20:53)
[2022-03-25] MEDS: SIMVASTATIN 40 MG TABLET PO SCH (20:53)
[2022-03-25] MEDS: cloNIDine 0.1 MG TABLET PO SCH (20:53)
[2022-03-26] MEDS: [UNRECOGNIZED DRUG - OTHER] IV SCH ×2 (00:08→05:45)
[2022-03-26] MEDS: MAGNESIUM SULF IV SCH ×2 (00:08→05:45)
[2022-03-26] MEDS: POTASSIUM CHLORIDE IV SCH ×2 (00:08→05:45)
[2022-03-26] MEDS: PIPERACILLIN/TAZOBACTAM 3,375 MG in SODIUM CHLORIDE 0.9% 100 ML IV SCH ×3 (00:10→16:00)
[2022-03-26] MEDS: methylPREDNISolone SOD SUC 40 MG/1 ML VIAL IV SCH ×3 (00:11→20:45)
[2022-03-26] MEDS: ALBUTEROL/IPRATROPIUM 3 ML NEB RESP TX SCH ×5 (02:55→23:50)
[2022-03-26 06:10] LABS: Basophils % 0.1 % (0.0-0.8); Hematocrit 39.6 VOL% (42.0-52.0); Hemoglobin 12.6 GM/DL (14.0-18.0); Immature Granulocytes % 1.8 %; Immature Granulocytes Absolute 0.25 #; Lymphocytes # 0.3 10*3/uL (1.4-4.0); Lymphocytes % 2.4 % (21.2-54.2); Mean Corpuscular HGB Conc 31.8 GM/DL (32-36); Mean Corpuscular Volume 88.6 FL (87-102); Monocytes # 0.5 10*3/uL (0.11-0.8); Monocytes % 3.3 % (1.7-12.7); Neutrophils % 92.4 % (38.7-73.9); Platelet Count 194 T/CUMM (130-400); Red Blood Count 4.47 MC/CUMM (3.8-5.5); Red Cell Distribution Width 15.3 % (9.3-17.3); White Blood Count 14.1 T/CUMM (4-12)
[2022-03-26 06:26] LABS: Calcium 8.5 MG/DL (8.5-10.1); Osmolality,Calculated 288.8 MOS/KG (273-304); Potassium 3.8 MMOL/L (3.5-5.1)
[2022-03-26] MEDS ORDERED: TISSUE ADHESIVE 1 EACH APPLICATOR TOP ONE (06:36)
[2022-03-26] MEDS ORDERED: LIDOCAINE 2% 5 ML VIAL ONE (06:50)
[2022-03-26] MEDS ORDERED: ROCURONIUM 50 MG/5 ML VIAL IV ONE (06:50)
[2022-03-26] MEDS ORDERED: MIDAZOLAM 2 MG/2 ML VIAL ONE (06:50)
[2022-03-26] MEDS ORDERED: ONDANSETRON 4 MG/2 ML VIAL ONE (06:50)
[2022-03-26] MEDS ORDERED: SUCCINYLCHOLINE 200 MG/10 ML VIAL ONE (06:50)
[2022-03-26] MEDS ORDERED: fentaNYL 100 MCG/2 ML VIAL ONE ×3 (06:50→09:54)
[2022-03-26] MEDS ORDERED: propofoL 200 MG/20 ML VIAL IV ONE (06:50)
[2022-03-26] MEDS ORDERED: ALBUTEROL INHALER 18 GM INH ONE (06:53)
[2022-03-26 07:11] LABS: Lymphocytes 1 % (20-55); Platelet Estimate Adequate; Total Cells Counted 100
[2022-03-26] MEDS ORDERED: PHENYLEPHRINE 1 MG/10 ML SYRINGE IV ONE (07:35)
[2022-03-26] MEDS ORDERED: POTASSIUM CHLORIDE INJ 20 MEQ in SODIUM CHLORIDE 0.45% 1,000 ML IV SCH (08:00)
[2022-03-26] MEDS ORDERED: LACTATED RINGERS 1,000 ML IV ONE (09:28)
[2022-03-26] MEDS ORDERED: ACETAMINOPHEN INJ 1,000 MG/100 ML VIAL IV ONE (09:56)
[2022-03-26] MEDS ORDERED: GLYCOPYRROLATE 0.4 MG/2 ML VIAL ONE (10:03)
[2022-03-26] MEDS ORDERED: NEOSTIGMINE 10 MG/10 ML VIAL ONE (10:03)
[2022-03-26] MEDS ORDERED: HYDROmorphone 1 MG/1 ML SYRINGE IV PRN ×2 (10:15→10:23)
[2022-03-26] MEDS ORDERED: diphenhydrAMINE 50 MG/1 ML VIAL IV PRN (10:23)
[2022-03-26] MEDS ORDERED: ONDANSETRON 4 MG/2 ML VIAL IV PRN (10:23)
[2022-03-26] MEDS ORDERED: PROMETHAZINE INJ 25 MG in SODIUM CHLORIDE 0.9% 50 ML IV PRN (10:23)
[2022-03-26] MEDS: MEPERIDINE 25 MG/1 ML VIAL IV PRN ×2 (10:45→11:00)
[2022-03-26] MEDS: INSULIN LISPRO 100 UNIT/ML SUBCUT SCH ×4 (11:18→20:45)
[2022-03-26] MEDS: glyBURIDE/METFORMIN 5-500 MG TABLET PO SCH ×2 (12:01→20:45)
[2022-03-26] MEDS: ARIPiprazole 5 MG TABLET PO SCH (12:02)
[2022-03-26] MEDS: DILTIAZEM CD 180 MG CAPSULE PO SCH (12:02)
[2022-03-26] MEDS: SODIUM CHLOR 0.45% KCL 20 MEQ 20 MEQ/1,000 ML BAG IV SCH (12:02)
[2022-03-26] MEDS: PIOGLITAZONE 15 MG TABLET PO SCH (12:02)
[2022-03-26] MEDS: PREGABALIN 100 MG CAPSULE PO SCH ×2 (12:02→20:45)
[2022-03-26] MEDS: PANTOPRAZOLE 40 MG TABLET PO SCH (12:03)
[2022-03-26] MEDS: HYDROmorphone 1 MG/1 ML SYRINGE IV PRN ×3 (12:04→20:45)
[2022-03-26] MEDS: MONTELUKAST 10 MG TABLET PO SCH (18:02)
[2022-03-26] MEDS: SERTRALINE 100 MG TABLET PO SCH (20:45)
[2022-03-26] MEDS: cloNIDine 0.1 MG TABLET PO SCH (20:45)
[2022-03-26] MEDS: SIMVASTATIN 40 MG TABLET PO SCH (20:45)
[2022-03-27] MEDS: PIPERACILLIN/TAZOBACTAM 3,375 MG in SODIUM CHLORIDE 0.9% 100 ML IV SCH ×3 (00:02→18:01)
[2022-03-27] MEDS: ALBUTEROL/IPRATROPIUM 3 ML NEB RESP TX SCH ×7 (03:30→23:11)
[2022-03-27 05:39] LABS: Basophils % 0.1 % (0.0-0.8); Hematocrit 34.7 VOL% (42.0-52.0); Hemoglobin 10.9 GM/DL (14.0-18.0); Immature Granulocytes % 2.5 %; Immature Granulocytes Absolute 0.34 #; Lymphocytes # 0.5 10*3/uL (1.4-4.0); Lymphocytes % 3.8 % (21.2-54.2); Mean Corpuscular HGB Conc 31.4 GM/DL (32-36); Mean Corpuscular Volume 90.4 FL (87-102); Mean Platelet Volume 10.8 FL (9.6-12.0); Monocytes # 0.7 10*3/uL (0.11-0.8); Neutrophils % 88.6 % (38.7-73.9); Platelet Count 201 T/CUMM (130-400); Red Blood Count 3.84 MC/CUMM (3.8-5.5); Red Cell Distribution Width 15.9 % (9.3-17.3); White Blood Count 13.6 T/CUMM (4-12)
[2022-03-27] MEDS: SODIUM CHLOR 0.45% KCL 20 MEQ 20 MEQ/1,000 ML BAG IV SCH ×2 (05:45→18:01)
[2022-03-27 05:58] LABS: Calcium 7.8 MG/DL (8.5-10.1); Osmolality,Calculated 283.7 MOS/KG (273-304); Potassium 4.7 MMOL/L (3.5-5.1)
[2022-03-27 06:10] LABS: Anisocytosis Slight; Lymphocytes 4 % (20-55); Platelet Estimate Normal; Total Cells Counted 100
[2022-03-27] MEDS: methylPREDNISolone SOD SUC 40 MG/1 ML VIAL IV SCH ×2 (09:48→21:40)
[2022-03-27] MEDS: INSULIN LISPRO 100 UNIT/ML SUBCUT SCH ×4 (10:44→21:39)
[2022-03-27] MEDS: PREGABALIN 100 MG CAPSULE PO SCH ×2 (10:46→21:39)
[2022-03-27] MEDS: glyBURIDE/METFORMIN 5-500 MG TABLET PO SCH ×2 (10:46→21:39)
[2022-03-27] MEDS: DILTIAZEM CD 180 MG CAPSULE PO SCH (10:46)
[2022-03-27] MEDS: ARIPiprazole 5 MG TABLET PO SCH (10:46)
[2022-03-27] MEDS: PANTOPRAZOLE 40 MG TABLET PO SCH (10:46)
[2022-03-27] MEDS: PIOGLITAZONE 15 MG TABLET PO SCH (10:46)
[2022-03-27] MEDS: MONTELUKAST 10 MG TABLET PO SCH (18:01)
[2022-03-27] MEDS: POLYETHYLENE GLYCOL POWDER 17 GM PACK PO SCH (18:01)
[2022-03-27] MEDS: cloNIDine 0.1 MG TABLET PO SCH (21:39)
[2022-03-27] MEDS: SERTRALINE 100 MG TABLET PO SCH (21:39)
[2022-03-27] MEDS: SIMVASTATIN 40 MG TABLET PO SCH (21:39)
[2022-03-27] MEDS: HYDROmorphone 1 MG/1 ML SYRINGE IV PRN (21:40)
[2022-03-28] MEDS: PIPERACILLIN/TAZOBACTAM 3,375 MG in SODIUM CHLORIDE 0.9% 100 ML IV SCH ×4 (00:15→23:27)
[2022-03-28] MEDS: ALBUTEROL/IPRATROPIUM 3 ML NEB RESP TX SCH ×5 (03:30→19:03)
[2022-03-28] MEDS: SODIUM CHLOR 0.45% KCL 20 MEQ 20 MEQ/1,000 ML BAG IV SCH ×2 (03:48→16:10)
[2022-03-28 06:10] LABS: Basophils % 0.2 % (0.0-0.8); Hematocrit 32.9 VOL% (42.0-52.0); Hemoglobin 10.5 GM/DL (14.0-18.0); Immature Granulocytes % 4.8 %; Immature Granulocytes Absolute 0.64 #; Lymphocytes # 0.5 10*3/uL (1.4-4.0); Mean Corpuscular HGB Conc 31.9 GM/DL (32-36); Mean Corpuscular Volume 88.7 FL (87-102); Mean Platelet Volume 10.4 FL (9.6-12.0); Monocytes # 0.8 10*3/uL (0.11-0.8); Monocytes % 5.9 % (1.7-12.7); NRBC # 0.02 10*3/uL; Neutrophils % 85.1 % (38.7-73.9); Platelet Count 225 T/CUMM (130-400); Red Blood Count 3.71 MC/CUMM (3.8-5.5); Red Cell Distribution Width 15.7 % (9.3-17.3); White Blood Count 13.4 T/CUMM (4-12)
[2022-03-28] MEDS: HYDROmorphone 1 MG/1 ML SYRINGE IV PRN ×3 (06:17→21:29)
[2022-03-28 06:36] LABS: Albumin 2.3 G/DL (3.4-5.0); Bilirubin,Total 0.4 MG/DL (0.20-1.00); Calcium 8.2 MG/DL (8.5-10.1); Osmolality,Calculated 283.5 MOS/KG (273-304); Potassium 4.8 MMOL/L (3.5-5.1); Total Protein 5.6 G/DL (6.4-8.2)
[2022-03-28 08:16] LABS: Anisocytosis 1+; Band Neutrophils 2 % (0-10); Lymphocytes 5 % (20-55); Metamyelocytes 1 %; Platelet Estimate Normal; Total Cells Counted 100
[2022-03-28] MEDS: glyBURIDE/METFORMIN 5-500 MG TABLET PO SCH ×2 (09:24→21:27)
[2022-03-28] MEDS: DILTIAZEM CD 180 MG CAPSULE PO SCH (09:25)
[2022-03-28] MEDS: ARIPiprazole 5 MG TABLET PO SCH (09:25)
[2022-03-28] MEDS: PANTOPRAZOLE 40 MG TABLET PO SCH (09:25)
[2022-03-28] MEDS: PIOGLITAZONE 15 MG TABLET PO SCH (09:25)
[2022-03-28] MEDS: methylPREDNISolone SOD SUC 40 MG/1 ML VIAL IV SCH ×2 (09:25→21:28)
[2022-03-28] MEDS: PREGABALIN 100 MG CAPSULE PO SCH ×2 (09:25→21:27)
[2022-03-28] MEDS: INSULIN LISPRO 100 UNIT/ML SUBCUT SCH ×4 (09:26→21:27)
[2022-03-28] MEDS: POLYETHYLENE GLYCOL POWDER 17 GM PACK PO SCH (09:26)
[2022-03-28] MEDS: MONTELUKAST 10 MG TABLET PO SCH (18:11)
[2022-03-28] MEDS: SIMVASTATIN 40 MG TABLET PO SCH (21:27)
[2022-03-28] MEDS: SERTRALINE 100 MG TABLET PO SCH (21:27)
[2022-03-28] MEDS: cloNIDine 0.1 MG TABLET PO SCH (21:48)
[2022-03-29] MEDS: ALBUTEROL/IPRATROPIUM 3 ML NEB RESP TX SCH ×6 (00:06→20:16)
[2022-03-29] MEDS: HYDROmorphone 1 MG/1 ML SYRINGE IV PRN ×2 (00:38→09:26)
[2022-03-29] MEDS: SODIUM CHLOR 0.45% KCL 20 MEQ 20 MEQ/1,000 ML BAG IV SCH ×2 (03:16→16:48)
[2022-03-29 05:00] LABS: Basophils % 0.3 % (0.0-0.8); Eosinophils % 0.3 % (0.00-10.9); Hematocrit 33.8 VOL% (42.0-52.0); Hemoglobin 10.5 GM/DL (14.0-18.0); Immature Granulocytes % 7.4 %; Immature Granulocytes Absolute 0.96 #; Lymphocytes # 0.6 10*3/uL (1.4-4.0); Lymphocytes % 4.6 % (21.2-54.2); Mean Corpuscular HGB Conc 31.1 GM/DL (32-36); Mean Corpuscular Volume 90.4 FL (87-102); Mean Platelet Volume 10.5 FL (9.6-12.0); Monocytes # 0.8 10*3/uL (0.11-0.8); Monocytes % 6.5 % (1.7-12.7); NRBC # 0.03 10*3/uL; Neutrophils % 80.9 % (38.7-73.9); Platelet Count 287 T/CUMM (130-400); Red Blood Count 3.74 MC/CUMM (3.8-5.5); Red Cell Distribution Width 15.8 % (9.3-17.3); White Blood Count 12.9 T/CUMM (4-12)
[2022-03-29 05:18] LABS: Alanine Aminotransferase 23 U/L (16-61); Albumin 2.2 G/DL (3.4-5.0); Alkaline Phosphatase 121 U/L (45-117); Aspartate Amino Transferase 11 U/L (0-37); Bilirubin,Total < 0.39 MG/DL (0.20-1.00); Blood Urea Nitrogen 14 MG/DL (7-18); Calcium 8.1 MG/DL (8.5-10.1); Carbon Dioxide 30 MMOL/L (21-32); Chloride 106 MMOL/L (98-107); Glucose 273 MG/DL (74-106); Osmolality,Calculated 287.5 MOS/KG (273-304); Potassium 5.2 MMOL/L (3.5-5.1); Sodium 139 MMOL/L (136-145); Total Protein 5.6 G/DL (6.4-8.2)
[2022-03-29 05:23] LABS: Anisocytosis Slight; Lymphocytes 5 % (20-55); Metamyelocytes 3 %; Platelet Estimate Normal; Total Cells Counted 100
[2022-03-29] MEDS: PIPERACILLIN/TAZOBACTAM 3,375 MG in SODIUM CHLORIDE 0.9% 100 ML IV SCH ×2 (06:15→14:26)
[2022-03-29] MEDS: DILTIAZEM CD 180 MG CAPSULE PO SCH (09:25)
[2022-03-29] MEDS: PANTOPRAZOLE 40 MG TABLET PO SCH (09:25)
[2022-03-29] MEDS: INSULIN LISPRO 100 UNIT/ML SUBCUT SCH ×3 (09:25→16:49)
[2022-03-29] MEDS: glyBURIDE/METFORMIN 5-500 MG TABLET PO SCH ×2 (09:25→21:46)
[2022-03-29] MEDS: ARIPiprazole 5 MG TABLET PO SCH (09:25)
[2022-03-29] MEDS: PIOGLITAZONE 15 MG TABLET PO SCH (09:25)
[2022-03-29] MEDS: methylPREDNISolone SOD SUC 40 MG/1 ML VIAL IV SCH ×2 (09:25→21:45)
[2022-03-29] MEDS: PREGABALIN 100 MG CAPSULE PO SCH (09:25)
[2022-03-29] MEDS: POLYETHYLENE GLYCOL POWDER 17 GM PACK PO SCH (09:26)
[2022-03-29] MEDS: MONTELUKAST 10 MG TABLET PO SCH (17:59)
[2022-03-29] MEDS: HEPARIN DRIP 25,000 UNITS/500 ML PREMIX IV SCH (17:59)
[2022-03-29] MEDS: SIMVASTATIN 40 MG TABLET PO SCH (21:46)
[2022-03-29] MEDS: APIXABAN 5 MG TABLET PO SCH (21:47)
[2022-03-29] MEDS: cloNIDine 0.1 MG TABLET PO SCH (23:55)
[2022-03-29] MEDS: SERTRALINE 100 MG TABLET PO SCH (23:59)
[2022-03-30] MEDS: INSULIN LISPRO 100 UNIT/ML SUBCUT SCH ×2 (00:01→09:42)
[2022-03-30] MEDS: PIPERACILLIN/TAZOBACTAM 3,375 MG in SODIUM CHLORIDE 0.9% 100 ML IV SCH ×2 (00:03→09:39)
[2022-03-30] MEDS: ALBUTEROL/IPRATROPIUM 3 ML NEB RESP TX SCH ×4 (00:30→10:54)
[2022-03-30 05:04] LABS: Basophils % 0.3 % (0.0-0.8); Hematocrit 35.5 VOL% (42.0-52.0); Hemoglobin 11.1 GM/DL (14.0-18.0); Immature Granulocytes % 8.9 %; Immature Granulocytes Absolute 1.04 #; Lymphocytes # 0.6 10*3/uL (1.4-4.0); Lymphocytes % 5.2 % (21.2-54.2); Mean Corpuscular HGB Conc 31.3 GM/DL (32-36); Mean Corpuscular Volume 89.6 FL (87-102); Mean Platelet Volume 10.4 FL (9.6-12.0); Monocytes # 0.8 10*3/uL (0.11-0.8); Monocytes % 6.8 % (1.7-12.7); NRBC # 0.02 10*3/uL; Neutrophils % 78.8 % (38.7-73.9); Platelet Count 334 T/CUMM (130-400); Red Blood Count 3.96 MC/CUMM (3.8-5.5); Red Cell Distribution Width 15.9 % (9.3-17.3); White Blood Count 11.7 T/CUMM (4-12)
[2022-03-30 05:30] LABS: Calcium 8.6 MG/DL (8.5-10.1); Osmolality,Calculated 285.5 MOS/KG (273-304); Potassium 4.5 MMOL/L (3.5-5.1)
[2022-03-30 05:33] LABS: Albumin 2.4 G/DL (3.4-5.0); Bilirubin,Total 0.4 MG/DL (0.20-1.00); Calcium 8.3 MG/DL (8.5-10.1); Osmolality,Calculated 287.4 MOS/KG (273-304); Potassium 5.1 MMOL/L (3.5-5.1); Total Protein 5.4 G/DL (6.4-8.2)
[2022-03-30 05:46] LABS: Hypochromia Slight; Lymphocytes 8 % (20-55); Metamyelocytes 1 %; Total Cells Counted 100
[2022-03-30 05:47] LABS: Microcytosis 1+; Platelet Estimate Normal; Polychromasia Slight
[2022-03-30 08:30] VITALS: BP 134/76
[2022-03-30] MEDS: DILTIAZEM CD 180 MG CAPSULE PO SCH (09:34)
[2022-03-30] MEDS: APIXABAN 5 MG TABLET PO SCH (09:34)
[2022-03-30] MEDS: glyBURIDE/METFORMIN 5-500 MG TABLET PO SCH (09:34)
[2022-03-30] MEDS: ARIPiprazole 5 MG TABLET PO SCH (09:37)
[2022-03-30] MEDS: PANTOPRAZOLE 40 MG TABLET PO SCH (09:37)
[2022-03-30] MEDS: PIOGLITAZONE 15 MG TABLET PO SCH (09:37)
[2022-03-30] MEDS: PREGABALIN 100 MG CAPSULE PO SCH ×2 (09:38)
[2022-03-30] MEDS: methylPREDNISolone SOD SUC 40 MG/1 ML VIAL IV SCH (09:38)
[2022-03-30] MEDS: POLYETHYLENE GLYCOL POWDER 17 GM PACK PO SCH (09:48)
== END 2022-03-30 13:15 | disposition home or self-care (01) | DRG 414 ==
LOC: EDUNIT# → N.ED 03:25 → N.EDINP 05:03 → N.3E 17:30
PROVIDERS: ADMIT Student in an Organized Health Care Education/Training Program; ATTEND Student in an Organized Health Care Education/Training Program
PROC: LAPCHOL (2022-03-26 07:12)